=== PATIENT | female | born 1990 | race African-American/Black ===

== ENCOUNTER 2017-11-15 16:57 | Emergency (ER) | payer MEDICAID ==
[2017-11-15 18:30] LABS: BASOPHILS 0.7 % (0-2); HEMOGLOBIN 14.4 g/dL (12-16); LYMPHOCYTES 49.4 % (15-50); MCH 29.6 pg (26.0-34.0); MCHC 35.1 g/dL (31.0-37.0); MCV 84.2 fL (80.0-100.0); MEAN PLATELET VOLUME 10.8 fL (7.4-10.4); NEUTROPHILS 24.9 % (40-80); PLATELET COUNT 159 10x3/uL (130-400); RBC 4.87 10x6/uL (4.00-5.40)
[2017-11-15 18:40] LABS: APPEARANCE CLEAR (CLEAR); BILIRUBIN NEGATIVE (NEGATIVE); COLOR DK YELLOW (YELLOW); GLUCOSE NEGATIVE (NEGATIVE); KETONE NEGATIVE (NEGATIVE); NITRITE NEGATIVE (NEGATIVE); PROTEIN NEGATIVE (NEGATIVE); SPECIFIC GRAVITY 1.015 (1.005-1.020); UROBILINOGEN NORMAL (NORMAL)
[2017-11-15 18:52] LABS: ALBUMIN 3.6 g/dL (3.4-5.0); ANION GAP 11.7 mmol/L (8-16); BILIRUBIN - TOTAL 1.22 mg/dL (0.2-1.3); CALCIUM 8.6 mg/dL (8.5-10.1); CARBON DIOXIDE 28.4 mmol/L (21.0-32.0); POTASSIUM - SERUM 3.1 mmol/L (3.5-5.1); PROTEIN - SERUM 7.1 g/dL (6.4-8.2)
[2017-11-15 19:27] LABS: HCG URINE NEGATIVE (NEGATIVE)
== END 2017-11-15 20:30 | disposition home or self-care (01) ==
LOC: D.ER 16:57
PROVIDERS: Emergency Medicine; Physician Assistant Medical
DX: A08.4 Viral intestinal infection, unspecified (principal)

== ENCOUNTER → 2018-04-05 10:44 | Outpatient (CLI) | payer MEDICAID | END | disposition home or self-care (01) | LOC: D.US 10:30 | DX: N63.21 Unspecified lump in the left breast, upper outer quadrant (principal) ==

== ENCOUNTER 2018-06-27 19:07 | Emergency (ER) | payer MEDICAID ==
[~2018-06-27] VITALS: Ht 160 cm; Wt 50.0 kg
[2018-06-27 19:15] VITALS: Ht 160 cm; Wt 50.0 kg
[2018-06-27] MEDS ORDERED: VENTOLIN HFA18 GM INH (19:17)
[2018-06-27 20:19] LABS: APPEARANCE CLEAR (CLEAR); BILIRUBIN NEGATIVE (NEGATIVE); COLOR YELLOW (YELLOW); GLUCOSE NEGATIVE (NEGATIVE); KETONE NEGATIVE (NEGATIVE); NITRITE NEGATIVE (NEGATIVE); PROTEIN NEGATIVE (NEGATIVE); SPECIFIC GRAVITY 1.005 (1.005-1.020); UROBILINOGEN NORMAL (NORMAL)
[2018-06-27 20:24] LABS: BACTERIA MODERATE /hpf (NONE SEEN)
[2018-06-27 20:52] LABS: HCG URINE NEGATIVE (NEGATIVE)
[2018-06-27 20:52] LABS: BASOPHILS 0.2 % (0-2); EOSINOPHILS 5.1 % (0-7); HEMATOCRIT 38.8 % (36.0-48.0); HEMOGLOBIN 13.5 g/dL (12-16); LYMPHOCYTES 48.6 % (15-50); MCH 29.9 pg (26.0-34.0); MCHC 34.8 g/dL (31.0-37.0); MCV 85.8 fL (80.0-100.0); MEAN PLATELET VOLUME 10.7 fL (7.4-10.4); MONOCYTES 10.2 % (2-11); NEUTROPHILS 35.9 % (40-80); PLATELET COUNT 200 10x3/uL (130-400); RBC 4.52 10x6/uL (4.00-5.40); RDW 12.6 % (11.5-14.5); WBC 5.5 10x3/uL (4.8-10.8)
[2018-06-27] MEDS ORDERED: MACROBID100 MG PO (21:06)
[2018-06-27 21:15] LABS: ALBUMIN 3.5 g/dL (3.4-5.0); BILIRUBIN - TOTAL 1.24 mg/dL (0.2-1.3); CALCIUM 8.2 mg/dL (8.5-10.1); CARBON DIOXIDE 30.1 mmol/L (21.0-32.0); POTASSIUM - SERUM 4.1 mmol/L (3.5-5.1); PROTEIN - SERUM 6.9 g/dL (6.4-8.2)
[2018-06-27 21:47] VITALS: BP 129/82
[2018-06-30 19:12] LABS: CHLAMYDIA TRACHOMATIS, NAA Negative (Negative)
== END 2018-06-27 22:10 | disposition home or self-care (01) ==
LOC: D.ER 19:07
PROVIDERS: Family Medicine
DX: N39.0 Urinary tract infection, site not specified (principal); N34.1 Nonspecific urethritis